=== PATIENT | female | born 1940 | race Caucasian/White ===

== ENCOUNTER 2016-07-12 11:09 | Emergency (ER) | payer MEDICARE ==
[~2016-07-12 11:09] MED LIST: *UNABLE2; ABILIFY2 PO; BENTYL10 PO; CALTRA600D PO; CEFT5 PO; CELEXA40 MG PO; CINNAMON PO; CINNAMONPO; CRANBERRY300 MG PO; CULTURELLE; DIOV160 PO; DIOVAN HCT160 MG/25 PO; DURAFLEX PO; ESGIC1 TAB; FISH-EPA1000 MG PO; FLAX OIL PO; FLEXI JOIN1 PO; FLORASTOR250 MG PO; FRESHKOTE OPH; HYDROCODONE/ACETAMIN; IRON325 MG PO; KLOR-CON 1010 MEQ PO; LIPITOR20 PO; MAG OXIDE PO; MAGOX4 PO; MCZ25 PO; MEGA RED PO; METHOC500B PO; MOBIC7.5 PO; MYLICON 80 MG T80 MG PO; NEUR300 PO; NEUR600 PO; NORCO1 TAB; NORV10 PO; OXAPROZIN600 MG PO; PRILO PO; PROMEGA PO; PVC V; SYN075 PO; ULTRAM50 PO; VITAMIN B-122500 MCG PO; VITAMIN D3 PO; VITAMIN D400 UNI1 PO; XANAX1 MG PO; [UNRECOGNIZED DRUG - CODE] OR; [UNRECOGNIZED DRUG - OTHER]; [UNRECOGNIZED DRUG - OTHER] PO; vitamin b 12 PO
[2016-07-12 11:49] LABS: BASOPHILS 0 %; EOSINOPHILS 0.2 %; EOSINOPHILS ABSOLUTE 0.01 10/3/uL (0.0-0.53); HEMATOCRIT 35.6 % (36.0-48.0); HEMOGLOBIN 12.1 g/dL (12.0-16.0); IMMATURE GRANULOCYTES 0.2 %; IMMATURE GRANULOCYTES ABSOLUTE 0.01 10/3/uL (0.0-0.11); LYMPHOCYTES 28.1 %; LYMPHOCYTES ABSOLUTE 1.55 10/3/uL (0.67-4.30); MEAN CORPUSCULAR VOLUME 91.3 fL (80-100); MEAN PLATELET VOLUME 10.9 fL (9.2-13.0); MONOCYTES 12.2 %; MONOCYTES ABSOLUTE 0.67 10/3/uL (0.21-1.20); NEUTROPHILS 59.3 %; NEUTROPHILS ABSOLUTE 3.27 10/3/uL (2.02-8.40); PLATELET COUNT 157 10/3/uL (150-400); RBC DISTRIBUTION WIDTH 12.8 % (12.0-16.0); WHITE BLOOD CELLS 5.5 10/3/uL (4.5-10.5)
[2016-07-12 11:51] LABS: MANUAL DIFF NO %
[2016-07-12 12:05] LABS: A/G RATIO 0.9 (0.7-1.9); ALBUMIN 3.5 G/DL (3.5-5.0); ALKALINE PHOSPHATASE 87 U/L (45-117); CALCIUM, SERUM 9.4 MG/DL (8.5-10.4); CHLORIDE, SERUM 105 MMOL/L (96-112); GLOBULIN 3.7 G/DL (2.5-4.1); POTASSIUM, SERUM 3.3 MMOL/L (3.5-5.3); SGOT(AST) 24 U/L (5-40); SGPT(ALT) 31 U/L (5-65); SODIUM, SERUM 141 MMOL/L (135-148); TOTAL BILIRUBIN 0.6 MG/DL (0-1.2); TOTAL PROTEIN 7.2 G/DL (6.0-8.5); TROPONIN I <0.02 NG/ML (<0.05)
[2016-07-12 12:08] LABS: BUN (BLOOD UREA NITROGEN) 27 MG/DL (6-23); CO2 (CARBON DIOXIDE) 25 MMOL/L (24-34); CREATININE 1.52 MG/DL (0.55-1.02); GFR AFRICAN AMERICAN 38 ML/MIN (>=60); GFR NON AFRICAN AMERICAN 33 ML/MIN (>=60); GLUCOSE, SERUM 150 MG/DL (60-99)
[2016-07-12 12:44] LABS: ASCORBIC ACID (UR NOT ORDER) 20 (NEG); BILIRUBIN, URINE NEGATIVE (NEG); ER URINALYSIS TAT 0 Hrs 21 Mins; KETONE, URINE NEGATIVE (NEG); LEUKOCYTE ESTERASE(NOT OR NEG (NEG); NITRITE (URINE) NEG (NEG); WBC (NOT ORDERED) (RFLEX) 4 (0-5)
== END 2016-07-12 21:49 | disposition home or self-care (01) ==
LOC: ER 11:09
PROVIDERS: Emergency Medicine
DX: I95.9 Hypotension, unspecified (principal); N17.9 Acute kidney failure, unspecified; R31.9 Hematuria, unspecified; I10 Essential (primary) hypertension; T50.901A Poisoning by unspecified drugs, medicaments and biological substances, accidental (unintentional), initial encounter; Z87.891 Personal history of nicotine dependence; Z91.011 Allergy to milk products; Z79.899 Other long term (current) drug therapy
CPT/HCPCS: 71010; 80053; 81001; 84484; 85025; 93005; 99284; A9270-GY